=== PATIENT | male | born 1970 | race Two or more races ===

== ENCOUNTER 2018-02-03 10:04 | Emergency (ER) | payer BC ==
[~2018-02-03] VITALS: Ht 170.2 cm; Wt 73.3 kg
[2018-02-03 10:08] VITALS: BP 144/82
[2018-02-03] MEDS ORDERED: KETOROLAC 30 MG/1 ML IM ONE (10:30)
[2018-02-03] MEDS ORDERED: KETOROLAC 30 MG/1 ML ONE (10:39)
[2018-02-03 11:15] LABS: TROPONIN I < 0.015 ng/mL (0.000-0.045)
== END 2018-02-03 11:36 | disposition home or self-care (01) ==
LOC: ED 11:03
DX: R07.89 Other chest pain (principal)
CPT/HCPCS: 36415; 71046; 84484; 93005; 96372; 99285; J1885

== ENCOUNTER 2018-11-09 19:10 | Emergency (ER) | payer BC ==
[~2018-11-09] VITALS: Ht 170.2 cm; Wt 71.1 kg
[2018-11-09] MEDS ORDERED: LIDOCAINE-MPF 1%, 5ML INFIL ONE (20:00)
[2018-11-09 20:17] LABS: BASOPHILS # (AUTO) 0.04 x10^3/uL (0-0.1); BASOPHILS % (AUTO) 0 % (0-1); EOSINOPHILS # (AUTO) 0.03 x10^3/uL (0-0.4); EOSINOPHILS % (AUTO) 0 % (1-7); LYMPHOCYTES # (AUTO) 2.16 x10^3/uL (1-3.4); LYMPHOCYTES % (AUTO) 23 % (22-44); MD NO; MEAN CORPUSCULAR HEMOGLOBIN 28.8 pg (27.5-34.5); MEAN CORPUSCULAR HGB CONC 33.7 g/dL (33.2-36.2); MEAN CORPUSCULAR VOLUME 85.6 fL (81-97); MEAN PLATELET VOLUME 7.3 fL (7.4-10.4); MONOCYTES # (AUTO) 0.98 x10^3/uL (0.2-0.8); MONOCYTES % (AUTO) 11 % (2-9); NEUTROPHILS # (AUTO) 6.13 x10^3/uL (1.8-6.8); NEUTROPHILS % (AUTO) 66 % (42-75); PLATELET COUNT 258 x10^3/uL (130-400); RED BLOOD COUNT 5.48 x10^6/uL (4.38-5.82); RED CELL DISTRIBUTION WIDTH 13.6 % (9.4-14.8)
[2018-11-09 20:24] LABS: ALANINE AMINOTRANSFERASE 33 U/L (12-78); ALBUMIN 3.8 g/dL (3.4-5.0); ANION GAP 5 mmol/L (5-15); CALCIUM 8.9 mg/dL (8.5-10.1); CHLORIDE 108 mmol/L (98-107)
[2018-11-09 20:26] LABS: ALKALINE PHOSPHATASE 127 U/L (45-117); BILIRUBIN,TOTAL 0.3 mg/dL (0.2-1.0); TOTAL PROTEIN 7.2 g/dL (6.4-8.2)
--- NOTE | 2018-11-09 21:48 | NUR ---
pt called to room from lobby
--- NOTE | 2018-11-09 22:24 | NUR ---
PT HERE FOR ABSESS TO [facility]UM PT HAS HX OF SAME APPROX 15 YRS AGO. PT SAYS HE FEELS RUBBING WHEN HE WALKS. PT DENIES BLOODY STOOL. VSS. WAITING FOR MD TO SEE.
[2018-11-09 22:53] VITALS: BP 143/86
--- NOTE | 2018-11-09 23:04 | NUR ---
Patient given discharge instructions and they have confirmed that they understand the instructions. Patient ambulatory with steady gait.
== END 2018-11-09 23:06 | disposition home or self-care (01) ==
LOC: ED 22:56
DX: K61.1 Rectal abscess (principal)
CPT/HCPCS: 36415; 80053; 85025; 99283

== ENCOUNTER 2021-04-08 10:32 | Emergency (ER) | payer BC ==
[~2021-04-08] VITALS: Ht 170.2 cm; Wt 73.3 kg
--- NOTE | 2021-04-08 12:17 | NUR ---
Lyndsay [id number] to call when ready for dc [phone]
[2021-04-08 15:14] LABS: BASOPHILS % (AUTO) 1 % (0-1); EOSINOPHILS % (AUTO) 1 % (1-7); LYMPHOCYTES % (AUTO) 32 % (22-44); MEAN CORPUSCULAR HEMOGLOBIN 29.8 pg (27.5-34.5); MEAN CORPUSCULAR HGB CONC 34.2 g/dL (33.2-36.2); MEAN PLATELET VOLUME 7.6 fL (7.4-10.4); MONOCYTES % (AUTO) 10 % (2-9); NEUTROPHILS % (AUTO) 55 % (42-75); PLATELET COUNT 334 x10^3/uL (130-400); RED BLOOD COUNT 5.28 x10^6/uL (4.38-5.82); RED CELL DISTRIBUTION WIDTH 13.5 % (9.4-14.8)
[2021-04-08 15:20] LABS: ALANINE AMINOTRANSFERASE 46 U/L (12-78); ALBUMIN 3.6 g/dL (3.4-5.0); ANION GAP 5 mmol/L (5-15); CHLORIDE 110 mmol/L (98-107); CREATININE 0.75 mg/dL (0.7-1.3)
[2021-04-08 15:23] LABS: ALKALINE PHOSPHATASE 114 U/L (45-117); BILIRUBIN,TOTAL 0.9 mg/dL (0.2-1.0); TOTAL PROTEIN 8.1 g/dL (6.4-8.2)
--- NOTE | 2021-04-08 15:24 | NUR ---
NO ANSWER FOR VITALS IN TRIAGE
--- NOTE | 2021-04-08 16:13 | NUR ---
PT [facility]IB [facility]. PER PT HE HAS ABD PAIN "AFTER YOU I TAKE A SHOWER OR EAT, I VOMIT" X 1 WEEK. PT RESTING IN [facility], MONITORING IN PLACE, [place] AT THIS TIME, [place].
[2021-04-08 16:14] VITALS: BP 134/74
== END 2021-04-08 17:01 | disposition home or self-care (01) ==
LOC: ED 16:55
DX: U07.1 COVID-19 (principal); R10.84 Generalized abdominal pain; R11.2 Nausea with vomiting, unspecified; F17.200 Nicotine dependence, unspecified, uncomplicated
CPT/HCPCS: 36415; 71045; 76700; 80053; 83690; 85025; 99285; U0003; U0005